=== PATIENT | male | born 1970 | race Caucasian/White ===

== ENCOUNTER 2016-12-31 16:39 | Emergency (ER) | payer OTHER ==
[~2016-12-31] VITALS: Ht 188 cm; Wt 79.4 kg
[~2016-12-31 16:39] MED LIST: FLEXERIL10 MG PO; HYDROCODONE/ACE1 TA2 PO; MAGNESIUM250 M1 PO; MASON NATURAL2000 IU PO; MOBIC 15MG15 MG PO; MULTIVITAMIN1 TAB PO; OMEPRAZOLE40 M1 PO; POTASSIUM99 MG PO; ZOFRAN4 M2 PO
[2016-12-31 16:51] VITALS: BP 131/76
[2016-12-31] MEDS ORDERED: DEXILANT60 M1 PO (17:08)
[2016-12-31] MEDS ORDERED: VITAMIN B-122000 MC1 PO (17:09)
--- NOTE | 2016-12-31 17:22 | RADIOLOGY REPORT ---
EXAMINATION: XR SHOULDER, RIGHT CLINICAL INFORMATION: Right shoulder pain following an injury. COMPARISON: Right shoulder MRI dated 12/22/2015. TECHNIQUE: Internal rotation, Grashey, and scapular Y views of the right shoulder. FINDINGS: No fracture or dislocation. Tiny acromioclavicular marginal osteophytes. No osseous erosion. Two 1-2 mm calcifications are seen in the region of the infraspinatus tendon insertion, which could represent minimal calcific tendinitis in the appropriate clinical setting. IMPRESSION: 1. Possible infraspinous calcific tendinitis. 2. Mild acromioclavicular osteoarthritis
[2016-12-31] MEDS ORDERED: NAPROSYN500 M1 PO (17:31)
--- NOTE | 2016-12-31 17:32 | ED UPPER/LOWER EXTREMITY COMPL ---
History of Present Illness General Chief Complaint: Upper Extremity Injury Stated Complaint: RT SHOULDER PAIN AT WORK Source: patient, old records Exam Limitations: no limitations Vital Signs & Intake/Output Vital Signs & Intake/Output Vital Signs Date Time Temp Pulse Resp B/P Pulse O2 O2 Flow FiO2 Ox Delivery Rate 12/31 1651 98.0 97 18 131/76 98 Room Air Allergies Coded Allergies: Penicillins (Severe, ANAPHALACTIC SHOCK 07/25/16) Reconcile Medications Cyanocobalamin (Vitamin B-12) (Vitamin B-12) (Unknown Strength) TABLET ( Unknown Dose) PO DAILY SUPPLEMENT (Reported) Dexlansoprazole (Dexilant) 60 MG CAP. 1 CAP PO DAILY GI (Reported) Triage Note: PT TO TRIAGE WITH C/O R SHOULDER PAIN S/P WORK INJURY TODAY. PT TOOK MOTRIN 1HR DAIRY CHEMIST AND PAIN 10 NOW. ICE PACK PROVIDED. Triage Nurses Notes Reviewed? 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 Patient was pushing with his right hand and he felt a sudden pain to his right anterior shoulder. Patient has injured that shoulder in the past and follows up with an orthopedic surgeon. The pain is constant and he rates it as a 5 out of 10. It increases with movement. There is no radiation. The pain is sharp in nature. Patient is left handed and states that he is still able to work. Past History Travel History Traveled to [place] past 21 day No Medical History Any Pertinent Medical History? 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 No Review of Systems Review of Systems Constitutional: Reports: no symptoms. Respiratory: Reports: no symptoms. Cardiovascular: Reports: no symptoms. Gastrointestinal/Abdominal: Reports: no symptoms. Musculoskeletal: Reports: see HPI, joint pain. Neurological/Psychological: Reports: no symptoms. Immunological: Reports: no symptoms. Physical Exam Physical Exam General Appearance: well developed/nourished, alert, awake Head: atraumatic Eyes: Bilateral: PERRL, EOMI. Cardiovascular/Respiratory: normal breath sounds, normal peripheral pulses, regular rate/rhythm, no respiratory distress Shoulder Right: normal range of motion, normal inspection, tenderness Elbow Right: normal range of motion, normal inspection Neurologic/Tendon: normal sensation, normal motor functions, normal tendon functions Progress Differential Diagnosis: sprain Plan of Care: Follow-up with orthopedics Departure Departure Disposition: HOME OR SELF CARE Condition: Stable Clinical Impression Primary Impression: Right shoulder strain Referrals: JAVIER MARX,CECILIA Barker (PCP/Family) JOSE MARX,ABRAHAM Additional Instructions: TAKE NAPROXYN NEEDED RETURN FOR ANY CONCERNS Departure Forms: Customer Survey General Discharge Information Prescriptions: Current Visit Scripts Naproxen (Naprosyn) 1 TAB PO BID PRN PAIN #60 TAB
== END 2016-12-31 17:43 ==
LOC: ERH 16:39
DX: S46.911A Strain of unspecified muscle, fascia and tendon at shoulder and upper arm level, right arm, initial encounter (principal); Y35.891A Legal intervention involving other specified means, law enforcement official injured, initial encounter; Y92.9 Unspecified place or not applicable; Y93.9 Activity, unspecified
CPT/HCPCS: 73030-RT

== ENCOUNTER 2017-10-09 16:26 | Inpatient (IN) | payer OTHER ==
[~2017-10-09] VITALS: Ht 188 cm; Wt 90.7 kg
[~2017-10-09 16:26] MED LIST changes: +DEXILANT60 M1 PO; +NAPROSYN500 M1 PO; +VITAMIN B-122000 MC1 PO
--- NOTE | 2017-10-09 18:00 | ED GI/GU/ABDOMINAL COMPLAINT ---
History of Present Illness General Chief Complaint: Abdominal Pain/Flank Pain Stated Complaint: ABD PAIN X1 DAY Source: patient Exam Limitations: no limitations Vital Signs & Intake/Output Vital Signs & Intake/Output Vital Signs Date Time Temp Pulse Resp B/P B/P Pulse O2 O2 Flow FiO2 Mean Ox Delivery Rate 10/09 2337 96.2 81 18 126/79 95 Room Air 10/09 1952 96.0 59 18 120/82 96 Room Air 10/09 1840 Room Air 10/09 1643 96.8 87 22 143/86 96 Allergies Coded Allergies: Penicillins (Severe, ANAPHALACTIC SHOCK 07/25/16) Reconcile Medications Cyanocobalamin (Vitamin B-12) (Vitamin B-12) (Unknown Strength) TABLET ( Unknown Dose) PO DAILY SUPPLEMENT (Reported) Dexlansoprazole (Dexilant) 60 MG CAP. 1 CAP PO DAILY GI (Reported) Naproxen (Naprosyn) 500 MG TABLET 1 TAB PO BID PRN PAIN Triage Note: PER PT ABD PAIN SINCE LAST NIGHT NO BM IN COUPLE DAYS, STARTED VOMITING TODAY, UNSURE OF FEVERS HX OF DIVERTICU PER PT DOES NOT FEEL THE SAME Triage Nurses Notes Reviewed? yes Onset: Gradual Duration: getting worse Timing: recent history Quality/Severity: severe Severity Numbers: 10 Location: epigastric Radiation: no radiation HPI: Patient is a 47-year-old male with a past medical history of diverticulitis with perforation and: Resection performed remotely over 10-12 years ago, and a recent gastric sleeve approximately 18 months ago was performed by Dr. Oneil and a past medical history of GERD who presents emergency and that yesterday evening approximately 2 hours after eating shrimp and grapefruit he had an acute onset of epigastric abdominal pain and which symptoms still occurred today where patient's had multiple episodes of bilious nonbloody emesis and worsening abdominal pain Denies any significant NSAID use or alcohol use Last bowel movement was yesterday no blood no melena noted denies any fever chest pain shortness of breath back pain testicular pain or swelling or hematuria Patient states that the abdominal pain worsened after watching a movie in the afternoon eating popcorn Patient does state that after the colon resection from diverticulitis he has had approximate 4 hernia repairs from the abdomen Patient also states that after Dr. Oneil performed the gastric sleeve he had a procedure in which he is most likely indicating a balloon treatment for a pyloric stricture Past History Travel History Traveled to [place] past 21 day No Medical History Any Pertinent Medical History? 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 No Review of Systems Review of Systems Constitutional: Reports: see HPI, chills. Denies: fever. EENTM: Reports: no symptoms. Respiratory: Reports: no symptoms. Cardiovascular: Reports: no symptoms. GI: Reports: see HPI, abdominal pain. Genitourinary: Reports: no symptoms. Musculoskeletal: Reports: no symptoms. Skin: Reports: no symptoms. Neurological/Psychological: Reports: no symptoms. Hematologic/Endocrine: Reports: no symptoms. Immunologic/Allergic: Reports: no symptoms. All Other Systems: Reviewed and Negative Physical Exam Physical Exam General Appearance: moderate distress Head: atraumatic Eyes: Bilateral: normal appearance, PERRL. Ears, Nose, Throat, Mouth: moist mucous membrane Neck: normal inspection Respiratory: normal breath sounds, chest non-tender, no respiratory distress Cardiovascular: regular rate/rhythm Gastrointestinal: normal bowel sounds, tenderness Back: normal inspection Extremities: normal range of motion Neurologic/Psych: no motor/sensory deficits, awake Skin: intact, normal color, cyanosis Core Measures ACS in differential dx? No Sepsis Present: No Sepsis Focused Exam Completed? No Progress Differential Diagnosis: AAA, AMI, appendicitis, biliary colic, bowel obstruction , colon cancer, cholecystitis, diverticulitis, epididymitis, esophageal varices, gastritis, hepatitis, hernia, hemorrhoids, ischemic bowel, inflamm bowel dis, Rose-Sushila tear, orchitis, pancreatitis, prostatitis, peptic ulcer, PUD/GERD, perforated viscous, pyelonephritis, SBO, testicular torsion, ureterolithiasis, urinary retention, urethritis, UTI/pyelo Plan of Care: Orders Procedure Date/time Status Nothing by Mouth 10/10 B Active [id number] VIEWS 10/10 0800 Active CBC WITHOUT DIFFERENTIAL 10/10 06 Active BASIC ELECTROLYTES PLUS BUN&CR 10/10 06 Active Pathway - chart 10/09 2312 Active Patient Data 10/09 2312 Active Misc Message 10/09 2148 Active ED Holding Orders 10/09 2148 Active Admit to inpatient 10/09 2148 Active Vital Signs 10/09 2148 Active Code Status 10/09 2148 Active Add-on Test (ER Only) 10/09 2106 Active PARTIAL THROMBOPLASTIN TIME 10/09 2106 Complete PROTHROMBIN TIME 10/09 2106 Complete TYPE & SCREEN (NOT X-MATCH) 10/09 2106 Complete NGT 10/09 2045 Active URINE DRUG SCREEN FOR ER ONLY 10/09 193 Complete Add-on Test (ER Only) 10/09 181 Active EKG 10/09 181 Active Add-on Test (ER Only) 10/09 181 Active TROPONIN LEVEL 10/09 1757 Complete LIPASE 10/09 1757 Complete LACTIC ACID 10/09 1757 Complete AMYLASE 10/09 175 Complete URINALYSIS 10/09 1630 Complete COMPREHENSIVE METABOLIC PANEL 10/09 1630 Complete CBC WITHOUT DIFFERENTIAL 10/09 1630 Complete VTE Mechanical Prophylaxis 10/09 UNK Active Vital Signs 10/09 UNK Active Intake & Output 10/09 UNK Active Activity/Ambulation 10/09 UNK Active Current Medications Sig/Peter Start time Last Medication Dose Stop Time Status Admin Pantoprazole Sodium 40 MG DAILY 10/10 1000 UNVr (Protonix) Heparin Sodium 5,000 UNIT Q8 10/10 0600 UNVr (Porcine) Ondansetron HCl 4 MG Q8P PRN 10/09 2315 AC (Zofran) Potassium Chloride 20 MEQ .Q10H 10/09 2315 AC (KCl 20MEQ in D5W 1/ 2NS 1000ML) Dextrose/Sodium 1,000 ML Chloride (D5W-1/2 Normal Saline 1000ML) Laboratory Tests 10/09/172044: Urine Opiates Screen > 4000.00 H, Methadone Screen < 40, Barbiturate Screen < 60, Ur Phencyclidine Scrn < 6.00, Amphetamines Screen < 100, U Benzodiazepines Scrn < 85, Urine Cocaine Screen < 50, Urine Cannabis Screen < 5.00, Urinalysis MANY H, Urine Color YEL, Urine Clarity HAZY H, Urine pH 8.0, Ur Specific [place] 1.020, Urine Protein TRACE H, Urine Ketones 15 H, Urine Nitrite NEG, Urine Bilirubin NEG, Urine Urobilinogen 0.2, Ur Leukocyte Esterase NEG, Ur Microscopic SEDIMENT EXAMINED, Urine RBC RARE, Urine WBC RARE, Ur Epithelial Cells RARE, Urine Bacteria RARE H, Urine Mucus MOD H, Urine Hemoglobin NEG, Urine Glucose NEG 10/09/17 1757: Anion Gap 14, Estimated GFR > 60, BUN/Creatinine Ratio 25.7 H, Glucose 148 H, Lactic Acid 1.8, Calcium 10.0, Total Bilirubin 0.7, AST 26, ALT 38, Alkaline Phosphatase 89, Troponin I < 0.01, Total Protein 7.9, Albumin 4.7, Globulin 3.2, Albumin/Globulin Ratio 1.5, Amylase 71, Lipase 199, PT 11.5, INR 1.10, APTT 31, CBC w Diff NO MAN DIFF REQ, RBC 5.22, MCV 88.1, MCH 30.0, RDW 12.1, MPV 9.3, Gran % 83.5 H, Lymphocytes % 10.2 L, Monocytes % 4.7, Eosinophils % 1.4, Basophils % 0.2, Absolute Granulocytes 10.4 H, Absolute Lymphocytes 1.3, Absolute Monocytes 0.6, Absolute Eosinophils 0.2, Absolute Basophils 0, PUBS MCHC 34.1 This was evaluated on multiple occasions and had intermittent relief of his abdominal pain patient on initial examination had bilious emesis however his vomiting has resolved. CT scan does show concerns of critical findings of small bowel obstruction with transition point NG tube will be placed Discussed results with patient was aware 2100 SURGERY WAS PAGED Discussed patient with Dr. Carlson who advised patient to be admitted and advised patient to receive NG tube placement Surgical PA who also evaluated and counseled patient Discussed admission with patient will agrees and has no questions NG tube was placed by nursing staff however x-rays note that patient had coiling where it was readjusted repeat imaging is pending. Diagnostic Imaging: Viewed by Me: Radiology Read, CT Scan. Radiology Impression: acute abnormality, SBO Initial ED EKG: normal QRS complex, normal sinus rhythm, 51 BPM,NSR Comments: PATIENT: MAKENNA ESTEVEZ PRESENT AGE: 47 PATIENT ACCOUNT NO: [id number] : 72 LOCATION: [facility] ORDERING PHYSICIAN: Norberto LECHUGA SERVICE DATE: 10/09/17 EXAM TYPE: CAT - CT ABD & PELVIS W IV CONTRAST EXAMINATION: CT ABDOMEN AND PELVIS WITH CONTRAST CLINICAL INFORMATION: Abdominal pain, nausea and vomiting. History of diverticulitis with perforation. COMPARISON: None TECHNIQUE: Multidetector volumetric imaging was performed of the abdomen and pelvis following IV administration of 95 mL of Optiray 320 intravenous contrast. Sagittal and coronal reformatted images were obtained on the technologist's workstation. DLP: 445 mGy-cm FINDINGS: LUNG BASES: There are minor dependent changes in the lung bases. There is a small hiatal hernia. LIVER, GALLBLADDER, AND BILIARY TREE: The liver is normal in size, shape, and attenuation. No focal hepatic lesion or biliary ductal dilatation is present. The gallbladder is unremarkable with no evidence of radiopaque gallstones, gallbladder wall thickening, or obvious pericholecystic inflammatory changes. PANCREAS: Unremarkable. SPLEEN: Unremarkable. ADRENAL GLANDS: Unremarkable. KIDNEYS AND URETERS: The kidneys are normal in size, shape, and attenuation. No hydronephrosis, hydroureter, or calculi seen. No perinephric stranding. BLADDER: Unremarkable. GASTROINTESTINAL TRACT: There is dilatation of the proximal and mid small bowel with a transition point in the left lower quadrant (series 3 image [id number]) distal to which small bowel loops are decompressed. There has been prior gastric surgery with suture material visualized. The stomach is decompressed. The colon is decompressed. A normal appendix is visualized. There are a few colonic diverticula without evidence of diverticulitis. There is a small amount of free fluid in the left paracolic gutter, and extending into the pelvis. No free intra-abdominal air. No discrete fluid collection. There are scattered surgical clips in the left lateral abdomen. ABDOMINAL WALL: There has been a ventral hernia repair with a mesh visualized. There is a small fat-containing periumbilical hernia. There are small fat-containing inguinal hernias. LYMPH NODES: No adenopathy VASCULAR: Unremarkable. PELVIC VISCERA: Unremarkable. OSSEOUS STRUCTURES: No acute osseous abnormalities. There are 5 nonrib-bearing lumbar type vertebral bodies. No compression deformities. No spondylolysis or scoliosis. IMPRESSION: There is a small bowel obstruction with a transition point in the left lower quadrant. No evidence of perforation. No drainable fluid collection. There is a small amount of free fluid in the left paracolic gutter extending into the pelvis. Colonic diverticula without evidence of diverticulitis. Postsurgical changes including gastric surgery and hernia repair. DICTATED BY: Albino Ascencio MD DATE/TIME DICTATED:10/09/172024 Departure Departure Disposition: STILL A PATIENT Condition: Guarded Clinical Impression Primary Impression: Small bowel obstruction Referrals: Kayla MARX,Guanakito Barker (PCP/Family) Departure Forms: Customer Survey General Discharge Information Admission Note Spoke With: Tae Zamora DO Documentation of Exam: Documentation of any treatments & extenuating circumstances including Concerns Regarding Discharge (functional status, medication knowledge or non-compliance, living conditions, etc.) that warrant an admission rather than observation: [ Patient request pain management, serial re-evaluations for worsening symptoms and possible surgical intervention surgery consultation NG tube placement repeat labs anti-medics IV fluids] Critical Care Note Critical Care Note Critical Care Time: 30-74 min
[2017-10-09 18:42] LABS: ABSOLUTE BASOPHIL COUNT 0 /CUMM (0.0-0.2); ABSOLUTE EOSINOPHIL COUNT 0.2 /CUMM (0.0-0.7); ABSOLUTE GRANULOCYTE CT 10.4 /CUMM (1.4-6.5); ABSOLUTE LYMPH COUNT 1.3 /CUMM (1.2-3.4); ABSOLUTE MONOCYTE COUNT 0.6 /CUMM (0.10-0.60); BASOPHIL % 0.2 % (0.0-2.0); EOSINOPHIL % 1.4 % (0-5); MEAN CORPUSCULAR HGB CONC 34.1 G/DL (33.0-37.0); MEAN CORPUSCULAR VOLUME 88.1 FL (80.0-94.0); MEAN PLATELET VOLUME 9.3 FL (7.4-10.4); PLATELET COUNT 290 /CUMM (130-400); RBC DISTRIBUTION WIDTH 12.1 % (11.5-14.5); RED BLOOD CELL CT 5.22 /CUMM (4.70-6.10); WHITE BLOOD CELL COUNT 12.5 /CUMM (4.8-10.8)
[2017-10-09 19:13] LABS: GRANULOCYTE % 83.5 % (42.2-75.2)
--- NOTE | 2017-10-09 20:36 | CT SCAN REPORT ---
EXAMINATION: CT ABDOMEN AND PELVIS WITH CONTRAST CLINICAL INFORMATION: Abdominal pain, nausea and vomiting. History of diverticulitis with perforation. COMPARISON: None TECHNIQUE: Multidetector volumetric imaging was performed of the abdomen and pelvis following IV administration of 95 mL of Optiray 320 intravenous contrast. Sagittal and coronal reformatted images were obtained on the technologist's workstation. DLP: 445 mGy-cm FINDINGS: LUNG BASES: There are minor dependent changes in the lung bases. There is a small hiatal hernia. LIVER, GALLBLADDER, AND BILIARY TREE: The liver is normal in size, shape, and attenuation. No focal hepatic lesion or biliary ductal dilatation is present. The gallbladder is unremarkable with no evidence of radiopaque gallstones, gallbladder wall thickening, or obvious pericholecystic inflammatory changes. PANCREAS: Unremarkable. SPLEEN: Unremarkable. ADRENAL GLANDS: Unremarkable. KIDNEYS AND URETERS: The kidneys are normal in size, shape, and attenuation. No hydronephrosis, hydroureter, or calculi seen. No perinephric stranding. BLADDER: Unremarkable. GASTROINTESTINAL TRACT: There is dilatation of the proximal and mid small bowel with a transition point in the left lower quadrant (series 3 image [id number]) distal to which small bowel loops are decompressed. There has been prior gastric surgery with suture material visualized. The stomach is decompressed. The colon is decompressed. A normal appendix is visualized. There are a few colonic diverticula without evidence of diverticulitis. There is a small amount of free fluid in the left paracolic gutter, and extending into the pelvis. No free intra-abdominal air. No discrete fluid collection. There are scattered surgical clips in the left lateral abdomen. ABDOMINAL WALL: There has been a ventral hernia repair with a mesh visualized. There is a small fat-containing periumbilical hernia. There are small fat-containing inguinal hernias. LYMPH NODES: No adenopathy VASCULAR: Unremarkable. PELVIC VISCERA: Unremarkable. OSSEOUS STRUCTURES: No acute osseous abnormalities. There are 5 nonrib-bearing lumbar type vertebral bodies. No compression deformities. No spondylolysis or scoliosis. IMPRESSION: There is a small bowel obstruction with a transition point in the left lower quadrant. No evidence of perforation. No drainable fluid collection. There is a small amount of free fluid in the left paracolic gutter extending into the pelvis. Colonic diverticula without evidence of diverticulitis. Postsurgical changes including gastric surgery and hernia repair.
[2017-10-09 21:33] LABS: PT 11.5 SEC (9.4-12.5); PTT 31 SEC (25-37)
--- NOTE | 2017-10-09 22:25 | RADIOLOGY REPORT ---
EXAMINATION: ABDOMEN 1 VIEW CLINICAL INFORMATION: Vomiting. Small bowel obstruction. Enteric tube placement. COMPARISON: Same day abdominal and pelvic CT. TECHNIQUE: A supine view of the abdomen is provided. FINDINGS: An enteric tube has been placed. The distal aspect of the catheter is coiled upon itself within the distal esophagus. There are a few mildly prominent loops of small bowel, notably improved from prior exam. Residual contrast material is present within the collecting systems of the kidneys. There are no air-fluid levels. There is no appendicolith. The visualized lung bases are clear. The osseous structures are unremarkable. IMPRESSION: Enteric tube coiled upon itself within the distal esophagus. Repositioning is warranted. Interval decreased prominence in dilated loops of bowel.
--- NOTE | 2017-10-09 23:20 | RADIOLOGY REPORT ---
EXAMINATION: ABDOMEN 1 VIEW CLINICAL INFORMATION: Enteric tube repositioning. Small bowel obstruction. COMPARISON: Multiple same day exams. TECHNIQUE: A supine view of the abdomen is provided. FINDINGS: An enteric tube is in place. The tip overlies the left upper quadrant, likely within the stomach. There are dilated loops of small bowel within the midabdomen. The visualized lung bases are clear. The osseous structures are unremarkable. IMPRESSION: Enteric tube in place with tip overlying the left upper quadrant, likely within the stomach. Dilated loops of bowel indicative of small bowel obstruction. Appearance is unchanged from the most recent exam.
--- NOTE | 2017-10-09 23:39 | History & Physical Pre-Op ---
Mercy Saldana [birth year]: General Information and HPI MD Statement: I have seen and personally examined HERBMAKENNA Munoz and documented this H&P. The patient is a 47 year old M who presented with a patient stated chief complaint of [abdominal pain, nausea and vomitting]. Source of Information: patient Exam Limitations: no limitations History of Present Illness: Onset of abdominal pain: one day ago, diffuse. States he did not have any changes in his dietary habits prior to onset of pain. Last formed bowel movement was three days ago. Pain began yesterday, nausea and bilious vomitting today. Had a small loose bm this morning. PSH: Diverticulitis with resection over 10 years ago. Sleeve gastrectomy: [address] Oliver Multiple hernia repairs. No history of prior small bowel obstruction PMH: Significat for GERD Allergies/Medications Allergies: Coded Allergies: Penicillins (Severe, ANAPHALACTIC SHOCK 07/25/16) Home Med list Cyanocobalamin (Vitamin B-12) (Vitamin B-12) (Unknown Strength) TABLET ( Unknown Dose) PO DAILY SUPPLEMENT (Reported) Dexlansoprazole (Dexilant) 60 MG CAP.BP 1 CAP PO DAILY GI (Reported) Naproxen (Naprosyn) 500 MG TABLET 1 TAB PO BID PRN PAIN Past History Medical History Neurological: NONE EENT: NONE Cardiovascular: hypertension Respiratory: NONE Gastrointestinal: NONE (hx of sleeve gastrectomy), diverticulitis Hepatic: NONE Renal: NONE Musculoskeletal: NONE Psychiatric: NONE Endocrine: NONE Blood Disorders: NONE Cancer(s): NONE DOCENT COORDINATOR/Reproductive: NONE Surgical History Pertinent Surgical History: colon resection, gastric bypass Review of Systems Review of Systems Constitutional: Reports: malaise. EENTM: Reports: no symptoms. Cardiovascular: Reports: no symptoms. Respiratory: Reports: no symptoms. GI: Reports: abdominal pain, bloating, distention, nausea, vomiting. Genitourinary: Reports: no symptoms. Musculoskeletal: Reports: no symptoms. Skin: Reports: no symptoms. Neurological/Psychological: Reports: no symptoms. Exam & Diagnostic Data Last 24 Hrs of Vital Signs/I&O Vital Signs Date Time Temp Pulse Resp B/P B/P Pulse O2 O2 Flow FiO2 Mean Ox Delivery Rate 10/09 2336 96.2 81 18 126/79 95 Room Air 10/09 1951 96.0 59 18 120/82 96 Room Air 10/09 1840 Room Air 10/09 1643 96.8 87 22 143/86 96 Intake & Output 10/10 0800 10/10 0000 10/09 1600 Intake Total 2000 Output Total 650 Balance 1350 Intake, IV 2000 Output, 150 Gastric Drainage Output, Urine 500 Patient 200 lb Weight Physical Exam: General Appearance: alert and oriented x3, no acute distress Head: atraumatic Eyes: Bilateral: normal appearance, PERRL, no scleral icterus. Ears, Nose, Throat, Mouth: moist mucous membrane, ngt in place right nares Neck: normal inspection Respiratory: normal breath sounds, chest non-tender, no respiratory distress Cardiovascular: bradycardic, s1s2 Gastrointestinal: normal bowel sounds, diffuse tenderness, soft distension, ngt in place Back: normal inspection Extremities: normal range of motion Neurologic/Psych: no motor/sensory deficits, awake Skin: intact, normal color Last 24 Hrs of Labs/Willie: Laboratory Tests 10/09/172044: Urine Opiates Screen > 4000.00 H, Methadone Screen < 40, Barbiturate Screen < 60, Ur Phencyclidine Scrn < 6.00, Amphetamines Screen < 100, U Benzodiazepines Scrn < 85, Urine Cocaine Screen < 50, Urine Cannabis Screen < 5.00, Urinalysis MANY H, Urine Color YEL, Urine Clarity HAZY H, Urine pH 8.0, Ur Specific [place] 1.020, Urine Protein TRACE H, Urine Ketones 15 H, Urine Nitrite NEG, Urine Bilirubin NEG, Urine Urobilinogen 0.2, Ur Leukocyte Esterase NEG, Ur Microscopic SEDIMENT EXAMINED, Urine RBC RARE, Urine WBC RARE, Ur Epithelial Cells RARE, Urine Bacteria RARE H, Urine Mucus MOD H, Urine Hemoglobin NEG, Urine Glucose NEG 10/09/17 1757: Anion Gap 14, Estimated GFR > 60, BUN/Creatinine Ratio 25.7 H, Glucose 148 H, Lactic Acid 1.8, Calcium 10.0, Total Bilirubin 0.7, AST 26, ALT 38, Alkaline Phosphatase 89, Troponin I < 0.01, Total Protein 7.9, Albumin 4.7, Globulin 3.2, Albumin/Globulin Ratio 1.5, Amylase 71, Lipase 199, PT 11.5, INR 1.10, APTT 31, CBC w Diff NO MAN DIFF REQ, RBC 5.22, MCV 88.1, MCH 30.0, RDW 12.1, MPV 9.3, Gran % 83.5 H, Lymphocytes % 10.2 L, Monocytes % 4.7, Eosinophils % 1.4, Basophils % 0.2, Absolute Granulocytes 10.4 H, Absolute Lymphocytes 1.3, Absolute Monocytes 0.6, Absolute Eosinophils 0.2, Absolute Basophils 0, PUBS MCHC 34.1 Diagnostic Data Other Results PATIENT: MAKENNA ESTEVEZ PRESENT AGE: 47 PATIENT ACCOUNT NO: [id number] : 72 LOCATION: ER ORDERING PHYSICIAN: Norberto LECHUGA SERVICE DATE: 10/09/17 EXAM TYPE: CAT - CT ABD & PELVIS W IV CONTRAST EXAMINATION: CT ABDOMEN AND PELVIS WITH CONTRAST CLINICAL INFORMATION: Abdominal pain, nausea and vomiting. History of diverticulitis with perforation. COMPARISON: None TECHNIQUE: Multidetector volumetric imaging was performed of the abdomen and pelvis following IV administration of 95 mL of Optiray 320 intravenous contrast. Sagittal and coronal reformatted images were obtained on the technologist's workstation. DLP: 445 mGy-cm FINDINGS: LUNG BASES: There are minor dependent changes in the lung bases. There is a small hiatal hernia. LIVER, GALLBLADDER, AND BILIARY TREE: The liver is normal in size, shape, and attenuation. No focal hepatic lesion or biliary ductal dilatation is present. The gallbladder is unremarkable with no evidence of radiopaque gallstones, gallbladder wall thickening, or obvious pericholecystic inflammatory changes. PANCREAS: Unremarkable. SPLEEN: Unremarkable. ADRENAL GLANDS: Unremarkable. KIDNEYS AND URETERS: The kidneys are normal in size, shape, and attenuation. No hydronephrosis, hydroureter, or calculi seen. No perinephric stranding. BLADDER: Unremarkable. GASTROINTESTINAL TRACT: There is dilatation of the proximal and mid small bowel with a transition point in the left lower quadrant (series 3 image [id number]) distal to which small bowel loops are decompressed. There has been prior gastric surgery with suture material visualized. The stomach is decompressed. The colon is decompressed. A normal appendix is visualized. There are a few colonic diverticula without evidence of diverticulitis. There is a small amount of free fluid in the left paracolic gutter, and extending into the pelvis. No free intra-abdominal air. No discrete fluid collection. There are scattered surgical clips in the left lateral abdomen. ABDOMINAL WALL: There has been a ventral hernia repair with a mesh visualized. There is a small fat-containing periumbilical hernia. There are small fat-containing inguinal hernias. LYMPH NODES: No adenopathy VASCULAR: Unremarkable. PELVIC VISCERA: Unremarkable. OSSEOUS STRUCTURES: No acute osseous abnormalities. There are 5 nonrib-bearing lumbar type vertebral bodies. No compression deformities. No spondylolysis or scoliosis. IMPRESSION: There is a small bowel obstruction with a transition point in the left lower quadrant. No evidence of perforation. No drainable fluid collection. There is a small amount of free fluid in the left paracolic gutter extending into the pelvis. Colonic diverticula without evidence of diverticulitis. Postsurgical changes including gastric surgery and hernia repair. DICTATED BY: Albino Ascencio MD DATE/TIME DICTATED:10/09/172024 FIELD CANE SCALE CLERK:RODRIGO DATE/TIME TRANSCRIBED:10/09/172024 CONFIDENTIAL, DO NOT COPY WITHOUT APPROPRIATE AUTHORIZATION. <Electronically signed in Other Vendor System> SIGNED BY: Albino Ascencio MD 10/09/172035 Assessment/Plan Assessment/Plan: This is a 47 year old with a PMH of GERD and a PSH of bowel resection for diverticulitis, as well as sleeve gastrectomy and hernia repairs. He presents today with a one day history of abdominal pain and a CT abdomen which shows dilated bowel loops and a transition point suggestive of small bowel obstruction. This case was discussed with Dr. Zamora. Due to sleeve gastrectomy, it was recommended by Dr. Zamora that if an ngt was necessary, it should be placed gently, nothing forced. The patient subsequently vomitted bilious material and an NGT was placed, placement verified by abdominal xray. -NPO, NGT to low wall suction -IV hydration: D5 1/2 NS with 20 mEQ Potassium at 125 cc/hr -IV protonix -Multiview abdominal xray tomorrow am -DVT PPX: Alps, sub q heparin -Follow up labs in am Discussed with Dr. Zamora As Ranked By This Provider Problem List: 1. Small bowel obstruction Tae Zamora DO 10/10/17 4886: Attending MD Review Statement Attending Statement Attending MD Statement: examined this patient, discuss w/resident/PA/SALES HUNTER, agreed w/resident/PA/SALES HUNTER, discussed with family, reviewed EMR data (avail), reviewed images Attending Assessment/Plan: Patient seen and examined, agree with above. Abdominal pain with N/V. Multiple prior surgeries. AVSS. Abd-soft. Labs ok. CT scan c/w SBO. Admit, NPO/IVF/NGT, repeat AXR in AM, serial abdominal exams.
[2017-10-10 03:00] VITALS: BP 138/80
--- NOTE | 2017-10-10 05:00 | Admission Core Measures ---
Acute Coronary Syndrome (CM) ACS Core Measures Acute Coronary Syndrome Diagnosis No Congestive Heart Failure (NEW) CHF Core Measures Congestive Heart Failure Diagnosis No Cerebrovascular Accident (NEW) CVA Core Measures CVA/TIA Diagnosis No Venous Thromboembolism VTE Core Rhonda (View Protocol) VTE Risk Factors Age>40 No Mechanical VTE Prophylaxis d/t N/A MechProphylax Ordered No VTE Pharm Prophylaxis d/t NA PharmProphylax ordered Problem List As ranked by this Provider includes Assessment & Plan 1. Small bowel obstruction HOME MEDS Home Med List Cyanocobalamin (Vitamin B-12) (Vitamin B-12) (Unknown Strength) TABLET ( Unknown Dose) PO DAILY SUPPLEMENT (Reported) Dexlansoprazole (Dexilant) 60 MG CAP.BP 1 CAP PO DAILY GI (Reported) Naproxen (Naprosyn) 500 MG TABLET 1 TAB PO BID PRN PAIN
[2017-10-10 06:00] VITALS: BP 128/74
--- NOTE | 2017-10-10 07:40 | PN- Bariatrics ---
Subjective Subjective: Reports continued abdominal discomfort. Uncertain if passing flatus yet. Objective Vital Signs and I&Os Vital Signs Date Time Temp Pulse Resp B/P B/P Pulse O2 O2 Flow FiO2 Mean Ox Delivery Rate 10/10 0600 98.4 61 20 128/74 97 Room Air 10/10 0300 98.1 79 20 138/80 97 Room Air 10/10 0142 96.0 66 20 115/68 97 Room Air 10/09 2337 96.2 81 18 126/79 95 Room Air 10/09 1952 96.0 59 18 120/82 96 Room Air 10/09 1840 Room Air 10/09 1643 96.8 87 22 143/86 96 Intake & Output 10/10 0800 10/10 0000 10/09 1600 10/09 0800 10/09 0000 10/08 1600 Intake Total 2000 Output Total 650 Balance 1350 Intake, IV 2000 Output, 150 Gastric Drainage Output, Urine 500 Patient 200 lb Weight Physical Exam: General - alert & oriented x 3. comfortable. no acute distress. Lungs - clear bilaterally. no w/r/r. Cardiac - s1s2. reg. Abdomen - soft. midline umbilical tenderness. ng tube in place with scant bilious output. Extremities - warm bilaterally. no c/c/e. calves soft and nontender b/l. Current Medications: Current Medications Sig/Peter Start time Last Medication Dose Route Stop Time Status Admin Acetaminophen 1,000 MG Q6P PRN 10/10 06 N/A 1 UNIT IV Heparin Sodium 5,000 UNIT Q8 10/10 0600 10/10 (Porcine) SC 0612 Lidocaine 0 .STK-MED ONE 10/09 2140 DC PO Morphine Sulfate 2 MG Q2P PRN 10/10 0615 AC 10/10 IV 0630 Morphine Sulfate 0 .STK-MED ONE 10/09 1948 DC .ROUTE Morphine Sulfate 4 MG ONCE ONE 10/09 193 DC 10/09 IV 10/09 Morphine Sulfate 0 .STK-MED ONE 10/09 1825 DC .ROUTE Morphine Sulfate 6 MG ONCE ONE 10/09 1814 DC 10/09 IV 10/09 1815 183 Ondansetron HCl 4 MG Q8P PRN 10/09 2315 AC IV Ondansetron HCl 0 .STK-MED ONE 10/09 182 DC .ROUTE Ondansetron HCl 4 MG ONCE ONE 10/09 1814 DC 10/09 IV 10/09 181 183 Pantoprazole Sodium 40 MG DAILY 10/10 1000 AC IV Potassium Chloride 20 MEQ .Q10H 10/09 2315 AC 10/10 Dextrose/Sodium 1,000 ML IV 0630 Chloride Sodium Chloride 1,000 ML BOLUS ONE 10/09 2014 DC 10/09 IV 10/09 Sodium Chloride 1,000 ML BOLUS ONE 10/09 1814 DC 10/09 IV 10/09 191 183 Results Last 48 Hours of Labs: Laboratory Tests 10/09 1757 Chemistry Sodium (137 - 145 mmol/L) 144 Potassium (3.5 - 5.1 mmol/L) 4.2 Chloride (98 - 107 mmol/L) 102 Carbon Dioxide (22 - 30 mmol/L) 28 Anion Gap (5 - 16) 14 BUN (9 - 20 mg/dL) 18 Creatinine (0.7 - 1.2 mg/dL) 0.7 Estimated GFR (>60 ml/min) > 60 BUN/Creatinine Ratio (7 - 25 %) 25.7 H Glucose (65 - 99 mg/dL) 148 H Lactic Acid (0.7 - 2.1 mmol/L) 1.8 Calcium (8.4 - 10.2 mg/dL) 10.0 Total Bilirubin (0.2 - 1.3 mg/dL) 0.7 AST (17 - 59 U/L) 26 ALT (21 - 72 U/L) 38 Alkaline Phosphatase (< 127 U/L) 89 Troponin I (<0.11 ng/ml) < 0.01 Total Protein (6.3 - 8.2 g/dL) 7.9 Albumin (3.5 - 5.0 g/dL) 4.7 Globulin (1.9 - 4.2 gm/dL) 3.2 Albumin/Globulin Ratio (1.1 - 2.2 %) 1.5 Amylase (30 - 110 U/L) 71 Lipase (23 - 300 U/L) 199 Coagulation PT (9.4 - 12.5 SEC) 11.5 INR (0.90 - 1.17) 1.10 APTT (25 - 37 SEC) 31 Hematology CBC w Diff NO MAN DIFF REQ WBC (4.8 - 10.8 /CUMM) 12.5 H RBC (4.70 - 6.10 /CUMM) 5.22 Hgb (14.0 - 18.0 G/DL) 15.7 Hct (42 - 52 %) 46.0 MCV (80.0 - 94.0 FL) 88.1 MCH (27.0 - 31.0 PG) 30.0 RDW (11.5 - 14.5 %) 12.1 Plt Count (130 - 400 /CUMM) 290 MPV (7.4 - 10.4 FL) 9.3 Gran % (42.2 - 75.2 %) 83.5 H Lymphocytes % (20.5 - 51.1 %) 10.2 L Monocytes % (1.7 - 9.3 %) 4.7 Eosinophils % (0 - 5 %) 1.4 Basophils % (0.0 - 2.0 %) 0.2 Absolute Granulocytes (1.4 - 6.5 /CUMM) 10.4 H Absolute Lymphocytes (1.2 - 3.4 /CUMM) 1.3 Absolute Monocytes (0.10 - 0.60 /CUMM) 0.6 Absolute Eosinophils (0.0 - 0.7 /CUMM) 0.2 Absolute Basophils (0.0 - 0.2 /CUMM) 0 PUBS MCHC (33.0 - 37.0 G/DL) 34.1 Toxicology Urine Opiates Screen (>2000 NG/ML) > 4000.00 H Methadone Screen (>300 NG/ML) < 40 Barbiturate Screen (>200 NG/ML) < 60 Ur Phencyclidine Scrn (>25 NG/ML) < 6.00 Amphetamines Screen (>1000 NG/ML) < 100 U Benzodiazepines Scrn (>200 NG/ML) < 85 Urine Cocaine Screen (>300 NG/ML) < 50 Urine Cannabis Screen (>50 NG/ML) < 5.00 Urines Urinalysis MANY H Urine Color (YEL,AMB,STR) YEL Urine Clarity (CLEAR) HAZY H Urine pH (5.0 - 8.0) 8.0 Ur Specific [place] (1.001 - 1.035) 1.020 Urine Protein (NEG,<30 MG/DL) TRACE H Urine Ketones (NEG) 15 H Urine Nitrite (NEG) NEG Urine Bilirubin (NEG) NEG Urine Urobilinogen (0.1 - 1.0 EU/dl) 0.2 Ur Leukocyte Esterase (NEG) NEG Ur Microscopic SEDIMENT EXAMINED Urine RBC (0 - 5 /HPF) RARE Urine WBC (0 - 2 /HPF) RARE Ur Epithelial Cells (NONE,FEW) RARE Urine Bacteria (NEG/NONE) RARE H Urine Mucus (FEW,NONE) MOD H Urine Hemoglobin (NEG) NEG Urine Glucose (N MG/DL) NEG Assessment/Plan Assessment/Plan This 47 year old male with hx multiple abdominal surgeries presents with sbo currently npo / ivf / ngt morphine prn pain hep sc - dvt ppx f/u labs and multiview oob/ambulation encouraged will d/w Core Measures Venous Thromboembolism VTE Risk Factors Age>40 No Mechanical VTE Prophylaxis d/t N/A MechProphylax Ordered No VTE Pharm Prophylaxis d/t NA PharmProphylax ordered
[2017-10-10 09:09] LABS: ABSOLUTE BASOPHIL COUNT 0 /CUMM (0.0-0.2); ABSOLUTE EOSINOPHIL COUNT 0.4 /CUMM (0.0-0.7); ABSOLUTE GRANULOCYTE CT 6.5 /CUMM (1.4-6.5); ABSOLUTE MONOCYTE COUNT 0.5 /CUMM (0.10-0.60); BASOPHIL % 0.4 % (0.0-2.0); EOSINOPHIL % 4.7 % (0-5); GRANULOCYTE % 68.7 % (42.2-75.2); MEAN CORPUSCULAR HGB 30.1 PG (27.0-31.0); MEAN CORPUSCULAR HGB CONC 34.1 G/DL (33.0-37.0); MEAN CORPUSCULAR VOLUME 88.3 FL (80.0-94.0); MEAN PLATELET VOLUME 9.2 FL (7.4-10.4); PLATELET COUNT 235 /CUMM (130-400); RED BLOOD CELL CT 4.33 /CUMM (4.70-6.10); WHITE BLOOD CELL COUNT 9.4 /CUMM (4.8-10.8)
[2017-10-10 09:29] LABS: HEMATOCRIT 38.2 % (42-52)
--- NOTE | 2017-10-10 09:50 | RADIOLOGY REPORT ---
EXAMINATION: XR ABDOMEN MULTIPLE VIEWS CLINICAL INDICATION: Abdominal pain nausea and bilious vomiting presumptive diagnosis small bowel obstruction. History of bariatric sleeve gastrectomy. COMPARISON: Plain film view of the abdomen dated 10/09/2017 at 10:59 PM. TECHNIQUE: 1 upright and 2 supine plain film views of the abdomen. FINDINGS: The NG tube is unchanged in position compared to the prior study with the tip extending well below the diaphragm and projecting over the gastric fundal region. The dilated gas-filled small bowel loops present on the previous study are not currently identified. No air-fluid levels are identified on the upright image. No evidence of free intraperitoneal gas is present. There is a possibility of gas within the small bowel, residual focal areas of small bowel gas are present in the right upper quadrant. Gas and fecal material is present throughout the colon and within the rectosigmoid region. Stable metallic densities overlying the left midabdomen are noted. IMPRESSION: 1. The gas-filled dilated small bowel loops present in the central upper abdomen on the prior study are not currently visualized, there is a paucity of gas within these small bowel on the current study. The findings suggest resolution of intermittent or partial small bowel obstruction versus resolution of ileus present on the prior study, with likely small bowel decompression due to presence of an NG tube. 2. No free intraperitoneal gas is present.
[2017-10-10 14:19] VITALS: BP 120/60
--- NOTE | 2017-10-10 18:56 | RADIOLOGY REPORT ---
EXAMINATION: ABDOMEN 2 VIEWS CLINICAL INFORMATION: Small bowel obstruction. COMPARISON: 10/10/2017. TECHNIQUE: Supine and upright views of the abdomen are provided. FINDINGS: There are no dilated loops of small bowel. An enteric tube is in place with the tip overlying the left upper quadrant, likely within the stomach. Contrast material is present within nondilated large bowel. There are several air-fluid levels identified. There is no appendicolith. The visualized lung bases are clear. The osseous structures are unremarkable. IMPRESSION: Enteric tube in place. No dilated loops of small bowel. Residual contrast material present within the colon.
[2017-10-10 22:21] VITALS: BP 128/80
[2017-10-11 06:16] VITALS: BP 120/76
--- NOTE | 2017-10-11 10:00 | PN- General Surgery ---
See Addendum Subjective Subjective: No acute overnight events reported. Pain improving but still c/o some tenderness with palpation. Had loose bm overnight. No nausea or vomitting. Has been on clear liquid diet. Objective Vital Signs and I&Os Vital Signs Date Time Temp Pulse Resp B/P B/P Pulse O2 O2 Flow FiO2 Mean Ox Delivery Rate 10/11 0616 98.0 67 20 120/76 98 Room Air 10/10 2221 98.1 60 20 128/80 98 Room Air 10/10 1419 98.7 60 20 120/60 96 Room Air Intake & Output 10/11 1600 10/11 0800 10/11 0000 10/10 1600 10/10 0800 10/10 0000 Intake Total 1280 480 696 427 0405 Output Total 650 Balance 1280 480 300 365 0437 Intake, IV 800 481 169 5091 Intake, Oral 480 480 90 0 Number 2 0 Bowel Movements Output, 150 Gastric Drainage Output, Urine 500 Patient 200 lb 200 lb Weight Weight Reported by Patient Measurement Method Physical Exam: General: Alert and oreinted x3, no acute distress Cardiac: RRR, s1s2 Pulm: CTA bilaterally Abdomen: Non-distended, +bs, tenderness with palpation mainlly in epigastric area presently Extremities: Moves all extremities, distal sensation intact. Skin warm and well pefused. Bilateral calves soft and non-tender Assessment/Plan Assessment/Plan This is a 47 year old male, hospital day 2 for sbo. NGT dc'd one day ago, evidence of contrast in colon on radiograph one day ago. Tolerating clear liquid diet, had loose bm overnight. Appears sbo resolving. -consider advance diet to full liquid -dc iv fluid -Transition pain med from iv to po -Continue ppi -Continue dvt ppx -Continue oob Will discuss with Dr. Zamora Core Measures Venous Thromboembolism VTE Risk Factors Age>40 No Mechanical VTE Prophylaxis d/t N/A MechProphylax Ordered No VTE Pharm Prophylaxis d/t NA PharmProphylax ordered
[2017-10-11 14:07] VITALS: BP 148/60
--- NOTE | 2017-10-11 14:38 | Patient Discharge Instructions ---
Discharge Instructions General Discharge Information You were seen/treated for: Small bowel obstruction You had these procedures: Conservative management including naso-gastric decompression with bowel rest Watch for these problems: Increasing abdominal pain Increasing bloating/abdominal distension Inability to pass gas/move bowels Persistant nausea/vomitting Fever greater than 101.5 Special Instructions: Advance diet slowly Watch for any worsening abdominal distension, pain Diet Continue normal diet: Yes Recommended Diet: Low Residue Activity Full Activity/No Limits: No Activity Self Limited: Yes Acute Coronary Syndrome Inclusion Criteria At DC or during hospital stay patient has or had the following: ACS DIAGNOSIS No Discharge Core Measures Meds if any: Prescribed or Continued at Discharge Meds if any: NOT Prescribed or Continued at Discharge Congestive Heart Failure Inclusion Criteria At DC or during hospital stay patient has or had the following: CHF DIAGNOSIS No Discharge Core Measures Meds if any: Prescribed or Continued at Discharge Meds if any: NOT Prescribed or Continued at Discharge Cerebrovascular accident Inclusion Criteria At DC or during hospital stay patient has or had the following: CVA/TIA Diagnosis No Discharge Core Measures Meds if any: Prescribed or Continued at Discharge Meds if any: NOT Prescribed or Continued at Discharge Venous thromboembolism Inclusion Criteria VTE Diagnosis No VTE Type NONE VTE Confirmed by (Test) NONE Discharge Core Measures - Per Current guidelines, there needs to be overlap - treatment for the first 5 days of Warfarin therapy. - If discharged on Warfarin prior to 5 days of - overlap therapy, the patient will need to be - assessed for post discharge needs including - *Post discharge parental anticoagulation - *Warfarin and/or parental anticoagulation education - *Follow up date to check INR post discharge At least 5 days overlap therapy as Inpatient No Meds if any: Prescribed or Continued at Discharge Note: Overlap Therapy is Warfarin and Anticoagulant Meds if any: NOT Prescribed or Continued at Discharge
--- NOTE | 2017-10-11 14:46 | Discharge Summary ---
Visit Information Visit Dates Admission Date: 10/09/17 Discharge Date: 10/11/2017 Hospital Course Course Attending Physician: Tae Zamora DO Primary Care Physician: Kayla MARX,Guanakito Barker Hospital Course: Patient was admitted to hospital on 10/09/2017 with a small bowel obstruction. A nasogasatric tube was placed and patient was made npo. IV hydration was given. A multiview abdominal radiograph taken hospital day one included a gastrograffin study which showed evidence of contrast in large bowel. At that point the NGT was removed and diet was advaned to clear liquid. On hospital day two, patient had a bowel movement. Diet was advanced to low residue and tolerated. Pateint was seen by Dr. Zamora and deemed appropriate for discharge to home. Allergies: Coded Allergies: Penicillins (Severe, ANAPHALACTIC SHOCK 07/25/16) Disposition Summary Disposition Principal Diagnosis: Small bowel obstruction Additional Diagnosis: None Discharge Disposition: home or self care Discharge Instructions General Discharge Information Code Status: Full Code Patient's Diet: Low residue, advance as tolerated Patient's Activity: As tolerated Follow-Up Instructions/Appts: Follow up with Dr. Zamora if abdominal pain persists Medications at Discharge Discharge Medications: Continue taking these medications: Dexlansoprazole (Dexilant) 60 MG KENISHA.BP 1 Capsule ORAL DAILY Qty = 90 Cyanocobalamin (Vitamin B-12) (Vitamin B-12) (Unknown Strength) TABLET Unknown Dose ORAL DAILY Naproxen (Naprosyn) 500 MG TABLET 1 Tablet ORAL TWICE DAILY as needed for PAIN Qty = 60
== END 2017-10-11 16:13 | DRG 390 ==
LOC: ERH 16:26 → 2NA 21:49 → ERHI 21:49 → ENRESERV 10-10 00:47 → 2NA 10-10 02:03 → ENPENDDIS 10-11 14:52 → ENTRNSPT 10-11 16:08 → 2NA 10-11 16:13 → CMPTRNSPT 10-11 16:13
PROVIDERS: Nurse Practitioner; Physician Assistant; Physician Assistant Medical
DX: K56.609 Unspecified intestinal obstruction, unspecified as to partial versus complete obstruction (principal); I10 Essential (primary) hypertension; Z98.84 Bariatric surgery status; K21.9 Gastro-esophageal reflux disease without esophagitis
CPT/HCPCS: 2NASP; ERO; 36415; 74018; 74021; 74177; 80307; 81001; 82436; 93005; 93010; J1644; J1885; J2405; J7042